=== PATIENT | male | born 1970 | race Caucasian/White ===

== ENCOUNTER → 2024-10-18 07:35 | Outpatient (REF) | payer OTHER, SELFPAY | LOC: HWRAD 07:35 | PROVIDERS: ATTENDING PHYSICIAN Specialist; FAMILY PHYSICIAN Family Medicine | DX: N20.0 Calculus of kidney (principal) | CPT/HCPCS: 74176 ==

== ENCOUNTER 2024-10-25 06:20 | Day surgery (SDC) | payer OTHER, SELFPAY ==
[2024-10-24 08:51] LABS: Hematocrit 42.3 % (39.0-52.0); Hemoglobin 14.9 g/dL (13.0-18.0); Mean Corp Hgb Conc. 35.2 g/dL (33.0-37.0); Mean Corpuscular Hgb 32.8 pg (27.0-31.0); Mean Corpuscular Volume 93.2 fL (80.0-94.0); Mean Platelet Volume 9.3 fL (7.4-10.4); Platelet Count 191 10^3/uL (130-400); Red Blood Cell Count 4.54 10^6/uL (4.70-6.10); Red Cell Dist. Width 12.1 % (11.5-14.5); White Blood Cell Count 4.7 10^3/uL (4.8-10.8)
[2024-10-24 09:27] LABS: Blood Urea Nitrogen 15 mg/dl (9-20); Calcium 9.4 mg/dl (8.4-10.2); Carbon Dioxide 28 mmol/L (22-30); Chloride 100 mmol/L (98-107); Glucose 104 mg/dl (70-99); Potassium 4.3 mmol/L (3.5-5.1); Sodium 138 mmol/L (135-145); eGFR > 60.00
[2024-10-24 14:11] VITALS: BMI 26.9
[2024-10-25] VITALS (11 sets, daily range): BP systolic 110–140; BP diastolic 61–86; BMI 26.9
[2024-10-25] MEDS: NORMOSOL-R/PLASMALYTE-A 1000 IV (10:53)
[2024-10-25] MEDS: DILAUDID 0.25 MG IV (13:26)
[2024-10-25] MEDS: Pyridium 200 MG PO (13:39)
[2024-10-25] MEDS: DILAUDID 0.5 MG IV (13:39)
[2024-10-25] MEDS: FLOMAX 0.4 MG PO (13:39)
== END 2024-10-25 15:15 | disposition home or self-care (01) ==
LOC: SDS 06:20
PROVIDERS: ATTENDING PHYSICIAN Specialist; FAMILY PHYSICIAN Family Medicine
DX: N20.1 Calculus of ureter (principal)
CPT/HCPCS: 52356; 74018; 76000; 80048; 82365; 85027; 93005; C1758; C1894; C2617